=== PATIENT | male | born 1995 | race Caucasian/White ===

== ENCOUNTER 2022-03-09 18:47 | Emergency (ER) | payer OTHER ==
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
[2022-03-11 10:12] VITALS: BP 136/93; TEMP 99; O2SAT 97
== END 2022-03-09 20:14 | disposition home or self-care (01) ==
LOC: ER 18:47
DX: M62.838 Other muscle spasm (principal); M54.2 Cervicalgia; V43.53XA Car driver injured in collision with pick-up truck in traffic accident, initial encounter
CPT/HCPCS: 99282